=== PATIENT | female | born 1935 | race Caucasian/White ===

== ENCOUNTER 2020-01-01 14:07 | Emergency (ER) | payer MEDICARE ==
[2020-01-01 15:04] LABS: Bacteria/HPF 4+ HPF (None Seen); Bilirubin Negative (Negative); Blood, Urine Trace (Negative); Clarity Extra Turbid (Clear); Glucose, Urine (Dipstick) Normal (Negative); Leukocyte 500 Leu/uL (Negative); Nitrite 2+ (Negative); Protein, Urine (Dipstick) 30 mg/dL (Neg-Trace); Urobilinogen Normal mg/dL (Less than 2); WBC/HPF Greater than 50 HPF (0-3)
[2020-01-01 15:05] LABS: Squamous Epithelial 0-3 HPF (0-3)
[2020-01-01 15:13] LABS: #Eosinphils 0.1 thou/uL (0.0-0.7); #Lymphocytes 1.4 thou/uL (1.20-3.40); #Monocytes 0.6 thou/uL (0.11-0.59); #Neutrophils 6.3 thou/uL (1.40-6.50); %Basophils 0.5 % (0.0-1.0); %Eosinophils 1.7 % (0.0-10.0); %Lymphocytes 16.4 % (21.0-51.0); %Monocytes 6.6 % (0.0-10.0); %Neutrophils 74.9 % (42.0-75.0); Mean Corpuscular HGB CONC 32.7 g/dL (32.0-36.0); Mean Corpuscular Volume 88.6 fL (78.0-98.0); Mean Platelet Volume 10.6 fL (7.4-10.4); Platelet Count 70 thou/uL (130-400); RBC Distribution Width 14.1 % (11.5-14.5); Red Blood Cell (RBC) Count 4.14 mill/uL (4.20-5.40); White Blood Cell (WBC) Count 8.4 thou/uL (4.8-10.8)
--- NOTE | 2020-01-01 15:23 | RAD ---
Chest AP view INDICATION: Chest pain COMPARISON: October 26, 2014 FINDINGS: Lungs: Chronic lung changes are stable Cardiac silhouette: Stable mild cardiomegaly Pulmonary vasculature: Normal Pleural spaces: No pleural effusion or pneumothorax is demonstrated. Upper abdomen: Ventriculoperitoneal catheter is unchanged. Osseous structures: Advanced right glenohumeral osteoarthrosis and healed deformity of right proxima l humerus is stable. There is diffuse osteopenia. Additional findings: Stable small hiatal hernia and tortuosity of the aorta. IMPRESSION: No acute cardiopulmonary abnormality.
[2020-01-01 15:36] LABS: ALT (SGPT) 15 U/L (8-55); AST (SGOT) 17 U/L (5-34); Albumin 3.8 g/dL (3.4-4.8); Alkaline Phosphatase 110 U/L (40-110); Anion Gap 12 mmol/L (10-20); BUN (Urea Nitrogen) 20 mg/dL (9.8-20.1); Bilirubin, Total 0.5 mg/dL (0.2-1.2); Calc. Creatinine Clearance 0 mL/min (70-130); Calcium 8.7 mg/dL (7.8-10.44); Carbon Dioxide 29 mmol/L (23-31); Chloride 102 mmol/L (98-107); Estimated GFR-MDRD 67; Globulin 2.6 g/dL (2.4-3.5); Glucose 114 mg/dL (83-110); Potassium 3.4 mmol/L (3.5-5.1); Protein, Total 6.4 g/dL (6.0-8.3); Sodium 140 mmol/L (136-145)
[2020-01-01] MEDS ORDERED: cefTRIAXone\\ROCEPHIN 2 GM VIAL ONE (16:01)
--- NOTE | 2020-01-01 16:23 | CT ---
Exam: Head CT without contrast HISTORY: Status post fall off toilet. Patient has a [employer] shunt catheter. COMPARISON: 10/26/2014 FINDINGS: Hemorrhage: No intraparenchymal hemorrhage or extra-axial hematoma. Brain parenchyma: Cortical corcoran-white matter differentiation is preserved. No mass effect or midline shift. Basilar cisterns are patent.Age-appropriate atrophy. White matter hypodensities due to chronic small vessel ischemic change. Ventricular system: Stable ventricle. [employer] shunt catheter via the right frontal approach. Distal tip cr osses midline and terminates in the anterior body of the left lateral ventricle. Stable appearance of the ventricular system. Calvarium: No fracture. Right frontal gio hole defect, unchanged Sinuses and mastoid air cells: Adequate aeration. IMPRESSION: No intracranial post traumatic sequelae.
--- NOTE | 2020-01-01 16:29 | CT ---
Exam: CT cervical spine without contrast HISTORY: Trauma. Pain. Patient fell off the toilet. COMPARISON: 12/02/2013 FINDINGS: No craniocervical dissociation. Appropriate alignment of the lateral masses of C1 and C2. Intact odon toid process Appropriate alignment of the facets. There is diffuse bony mineralization. Soft tissue neck structures: No mass, lymphadenopathy or hematoma. No prevertebral soft tissue swelli ng. Upper mediastinum and lung apices: Unremarkable Central spinal canal: There are varying degrees of central canal stenosis and neural foraminal narrow ing, the basis of degenerative change.. Evaluation is limited by technique Vertebral bodies: Cervical spine vertebral body height is maintained. No fracture. IMPRESSION: No fracture
--- NOTE | 2020-01-05 14:15 | EKG ---
Test Reason : Blood Pressure : / mmHG Vent. Rate : 066 BPM Atrial Rate : 066 BPM P-R Int : 160 ms QRS Dur : 078 ms QT Int : 484 ms P-R-T Axes : 035 012 045 degrees QTc Int : 507 ms Sinus rhythm with Premature supraventricular complexes Prolonged QT Abnormal ECG Confirmed by GELY NICHOLAS DO ([id number]), senior technical editor NADIA VARNER ([id number]) on 01/05/2020 2:15:23 PM Referred By: Confirmed By:GELY NICHOLAS DO
== END 2020-01-01 17:45 | disposition home or self-care (01) ==
LOC: ERS 14:07
DX: N30.00 Acute cystitis without hematuria (principal); Y92.129 Unspecified place in nursing home as the place of occurrence of the external cause; E03.9 Hypothyroidism, unspecified; I10 Essential (primary) hypertension; F32.9 Major depressive disorder, single episode, unspecified; F03.90 Unspecified dementia, unspecified severity, without behavioral disturbance, psychotic disturbance, mood disturbance, and anxiety; Z79.899 Other long term (current) drug therapy; Z79.82 Long term (current) use of aspirin; W18.11XA Fall from or off toilet without subsequent striking against object, initial encounter
CPT/HCPCS: 36415; 51701; 70450; 71045; 72125; 80053; 81003; 81015; 84484; 85025; 87077; 87086; 87186; 93005; 94760; 96365; A4353; J0696

== ENCOUNTER 2021-07-14 05:35 | Inpatient (IN) | payer MEDICARE ==
[2021-07-14] MEDS ORDERED: Norepinephrine 8 MG/0.9% NS 250 ML ONE (05:54)
[2021-07-14 05:57] LABS: Actual Bicarbonate (HCO3a) 19.5 mEq/L (22-28); Analyzer IN Cardio ER; Base Excess (BEa) -4.2 mEq/L (-2.0 to +3.0); CO2 Tension 30.4 mmHg (35.0-45.0); Calcium, Ionized (arterial) 0.98 mmol/L (1.12-1.30); Carboxyhemoglobin (COHb) 0.3 gm% (0.0-3.0); O2 Tension (PaO2), arterial 408.2 mmHg (> 60.0); Potassium - ABG Lab 2.27 mmol/L (3.70-5.30); pH, Arterial 7.43 (7.35-7.45)
[2021-07-14 05:59] LABS: Puncture Site LRA
[2021-07-14] MEDS ORDERED: Fentanyl CADD 100 ML IV SCH (06:00)
[2021-07-14] MEDS ORDERED: Cefepime 2 GM VIAL ONE (06:00)
[2021-07-14 06:29] LABS: Hemoglobin 7.1 g/dL (12.0-16.0); Mean Corpuscular Hemoglobin 30.8 pg (27.0-31.0); Mean Corpuscular Volume 90.5 fL (78.0-98.0); Mean Platelet Volume 11.5 fL (7.4-10.4); Platelet Count 20 thou/uL (130-400); RBC Distribution Width 13.6 % (11.5-14.5); White Blood Cell (WBC) Count 8.6 thou/uL (4.8-10.8)
[2021-07-14 06:36] LABS: ALT (SGPT) 7 U/L (8-55); AST (SGOT) 13 U/L (5-34); Albumin 1.8 g/dL (3.4-4.8); Alkaline Phosphatase 50 U/L (40-110); Anion Gap 9 mmol/L (10-20); BUN (Urea Nitrogen) 15 mg/dL (9.8-20.1); Bilirubin, Total 0.3 mg/dL (0.2-1.2); Calc. Creatinine Clearance 0 mL/min (70-130); Carbon Dioxide 15 mmol/L (23-31); Chloride 121 mmol/L (98-107); Globulin 1.1 g/dL (2.4-3.5); Glucose 86 mg/dL (83-110); Magnesium 1.1 mg/dL (1.6-2.6); Protein, Total 2.9 g/dL (5.8-8.1); Sodium 143 mmol/L (136-145)
[2021-07-14 06:44] LABS: Calcium 4.7 mg/dL (7.8-10.44); Potassium 1.7 mmol/L (3.5-5.1)
[2021-07-14 07:03] LABS: Reflex for Review?? YES
[2021-07-14 07:04] LABS: Band 22 % (5-11); Lymphocytes 3 % (21-51); MDiff Complete? YES; Monocytes 3 % (0-10); Neutrophil 72 % (42-75); Platelet Morphology Comment Appears Decreased
[2021-07-14 07:11] LABS: Bacteria/HPF 4+ HPF (None Seen); Bilirubin Negative (Negative); Blood, Urine 3+ (Negative); Glucose, Urine (Dipstick) Normal (Negative); Ketone, Urine Negative (Negative); Leukocyte 500 Leu/uL (Negative); Nitrite 2+ (Negative); Protein, Urine (Dipstick) 30 mg/dL (Neg-Trace); RBC/HPF Greater than 50 HPF (0-3); Specific Gravity, Urine 1.012 (1.002-1.036); Urobilinogen Normal mg/dL (Less than 2); WBC/HPF Greater than 50 HPF (0-3); pH, Urine 6.5 (5.0-9.0)
[2021-07-14 07:12] LABS: Clarity Turbid (Clear)
[2021-07-14] MEDS ORDERED: Vancomycin 1 GM/200 ML BAG ONE (07:13)
[2021-07-14] MEDS ORDERED: Magnesium 2 GM/50 ML BAG (IN WATER) ONE (07:13)
[2021-07-14] MEDS ORDERED: Electrolyte Replacement Protocol 1 EACH IVPB SCH (07:43)
[2021-07-14] MEDS ORDERED: Potassium Chloride 40 MEQ in Premix Bag 1 BAG IVPB SCH (08:00)
[2021-07-14] MEDS ORDERED: Sodium Chloride 0.9% 1,000 ML IV SCH (08:00)
[2021-07-14] MEDS ORDERED: Potassium Bicarbonate/Cit Ac 20 MEQ TAB PER TUBE SCH (08:15)
[2021-07-14] MEDS ORDERED: Sodium Chloride 0.9% (PF) 10 ML VIAL FS PRN (08:30)
[2021-07-14 08:58] LABS: Fibrinogen 313 mg/dL (253-463)
[2021-07-14 08:59] LABS: INR-International Normal Ratio 1.2; PTT 33.1 sec (22.9-36.1); Prothrombin Time 15.3 sec (12.0-14.7)
[2021-07-14] MEDS ORDERED: Pantoprazole 40 MG VIAL IVP SCH (09:00)
[2021-07-14 09:01] LABS: SARS-CoV-2 NAA Rapid Test Not Detected (NotDetected)
[2021-07-14 09:25] LABS: FSP-Qualitative ABNORMAL (Normal); FSP-Semiquantitative >=40 & <80 mcg/mL (Less than 5)
[2021-07-14 09:30] LABS: Lactic Acid 3.6 mmol/L (0.5-2.2)
[2021-07-14 09:33] VITALS: BP 93/53; TEMP 99.6; BMI 24.2
[2021-07-14] MEDS ORDERED: Lorazepam 2 MG/ML VIAL SLOW IVP PRN (09:57)
[2021-07-14] MEDS ORDERED: Morphine 4 MG/ML VIAL SLOW IVP PRN (09:58)
[2021-07-14] MEDS ORDERED: MEROPENEM 1 GM/50 ML 1 GM in Premix Bag 1 BAG IVPB SCH ×2 (10:00→18:00)
[2021-07-14] MEDS ORDERED: Hydrocortisone Sod Succ/PF 100 mg/2 ml Vial IVP SCH (14:00)
[2021-07-15] MEDS ORDERED: Vancomycin 1 GM in Premix Bag 1 BAG IVPB SCH (08:00)
== END 2021-07-14 11:31 | disposition hospice, inpatient (51) | DRG 871 ==
LOC: ERS 05:35 → CCU 07:50
PROVIDERS: ADMIT Internal Medicine; ATTEND Internal Medicine
PROC: 3E033XZ Introduction of Vasopressor into Peripheral Vein, Percutaneous Approach (ICD-10-PCS; principal; 2021-07-14)
PROC: 0BH17EZ Insertion of Endotracheal Airway into Trachea, Via Natural or Artificial Opening (ICD-10-PCS; 2021-07-14)
PROC: 5A1935Z Respiratory Ventilation, Less than 24 Consecutive Hours (ICD-10-PCS; 2021-07-14)
DX: A41.9 Sepsis, unspecified organism (principal); R65.21 Severe sepsis with septic shock; J96.01 Acute respiratory failure with hypoxia; N39.0 Urinary tract infection, site not specified; G91.2 (Idiopathic) normal pressure hydrocephalus; Z51.5 Encounter for palliative care; Z66 Do not resuscitate; Z20.822 Contact with and (suspected) exposure to COVID-19; E87.6 Hypokalemia; E83.42 Hypomagnesemia; D50.9 Iron deficiency anemia, unspecified; D69.6 Thrombocytopenia, unspecified; I10 Essential (primary) hypertension; Z78.1 Physical restraint status; Z79.890 Hormone replacement therapy; Z79.899 Other long term (current) drug therapy; Z88.1 Allergy status to other antibiotic agents; Z88.5 Allergy status to narcotic agent; Z88.8 Allergy status to other drugs, medicaments and biological substances; Z90.710 Acquired absence of both cervix and uterus; Z90.49 Acquired absence of other specified parts of digestive tract
CPT/HCPCS: 0240U; 36415; 36430; 36556; 36600; 51702; 71045; 80053; 81003; 81015; 82805; 83605; 83735; 84443; 84484; 85025; 85060; 85362; 85384; 85610; 85730; 86850; 86900; 86901; 87040; 87077; 87086; 87186; 93005; 94002; 96365; 96366; 96367; 96368; 99292; J0692; J3010; J3370; J3475; J3480; J7050; P9016

== ENCOUNTER 2021-07-14 11:45 | Inpatient (IN) | payer OTHER ==
[2021-07-14] MEDS: Lorazepam 2 MG/ML VIAL SLOW IVP PRN ×2 (12:00→12:20)
[2021-07-14] MEDS ORDERED: Morphine 4 MG/ML VIAL SLOW IVP SCH (12:00)
[2021-07-14] MEDS: Morphine 4 MG/ML VIAL SLOW IVP PRN ×2 (12:20→12:30)
== END 2021-07-14 15:00 | disposition expired | DRG 951 ==
LOC: CCU 11:45
PROVIDERS: ADMIT Internal Medicine; ATTEND Internal Medicine
DX: Z51.5 Encounter for palliative care (principal); A41.9 Sepsis, unspecified organism; Z66 Do not resuscitate; R65.21 Severe sepsis with septic shock; J96.01 Acute respiratory failure with hypoxia; N39.0 Urinary tract infection, site not specified; I10 Essential (primary) hypertension; E87.6 Hypokalemia; E83.42 Hypomagnesemia; D64.9 Anemia, unspecified; D69.59 Other secondary thrombocytopenia
CPT/HCPCS: J2060; J2270